=== PATIENT | male | born 1995 | race African-American/Black ===

== ENCOUNTER 2017-01-23 22:44 | Emergency (ER) | payer OTHER ==
[~2017-01-23] VITALS: Ht 175.3 cm; Wt 86.9 kg
[~2017-01-23 22:44] MED LIST: NAPROSYN500 MG PO; PEPCID20 MG PO; VENTOLIN HFA18 GM IH
[2017-01-23 23:39] LABS: EOSINOPHIL (%) 3.4 % (0-5); EOSINOPHIL COUNT 0.3 K/uL (0-0.3); HEMATOCRIT 42.3 % (38.0-50.0); IMMATURE GRANULOCYTE (%) 0.3 % (0.0-0.7); INSTRUMENT ABS NEUTROPHIL CT 4.5 K/uL; LYMPHOCYTE COUNT 2.1 K/uL (1.0-2.8); MCHC 33.3 G/DL (30.0-36.0); MCV 95.9 FL (86-99); MEAN PLAT.VOLUME 10.1 uM^3 (9.0-12.4); MONOCYTE (%) 11.9 % (3-12); MONOCYTE COUNT 0.9 K/uL (0-0.8); NEUTROPHIL (%) 57.2 % (45-76); NEUTROPHIL COUNT 4.5 K/uL (1.8-6.4); PLATELET COUNT 280 K/uL (156-360); RBC DIS.WIDTH-CV 11.7 % (11.8-14.6); RBC DIS.WIDTH-SD 41.1 % (39-53); RED BLOOD COUNT 4.41 M/uL (4.00-5.50); WHITE BLOOD COUNT 7.8 K/uL (4.1-10.2)
[2017-01-23 23:50] LABS: CHLORIDE 106 mEq/L (99-109); POTASSIUM 3.6 mEq/L (3.7-5.4); SODIUM 141 mEq/L (136-147)
[2017-01-23 23:52] LABS: GLUCOSE 104 mg/dL (70-99)
[2017-01-23 23:53] LABS: ANION GAP 10 MEQ/L (2-14)
[2017-01-23 23:56] LABS: GFR ESTIMATE (CALCULATED) > 59 mL/min/
[2017-01-23 23:57] LABS: UREA NITROGEN (BUN) 19 mg/dL (9-23)
[2017-01-23 23:58] LABS: D-DIMER ELISA < 0.15 mg/L FEU (< 0.57)
[2017-01-23 23:59] LABS: TROP-I INTERPRETATION NEGATIVE; TROPONIN-I < 0.01 ng/mL (0.0-0.30)
[2017-01-24 02:04] LABS: TROP-I INTERPRETATION NEGATIVE; TROPONIN-I < 0.01 ng/mL (0.0-0.30)
[2017-01-24 03:08] LABS: INFLUENZA A VIRAL ANTIGEN NEGATIVE; INFLUENZA B VIRAL ANTIGEN NEGATIVE
[2017-01-24] MEDS ORDERED: TYLENOL WITH C1 EACH PO (03:17)
[2017-01-24] MEDS ORDERED: PROAIR RESPICL90 MCG IH (03:47)
[2017-01-24 04:00] VITALS: BP 124/63
== END 2017-01-24 04:11 | disposition home or self-care (01) ==
LOC: EME 22:44
PROVIDERS: Emergency Medicine
DX: R07.9 Chest pain, unspecified (principal); J45.909 Unspecified asthma, uncomplicated; F17.200 Nicotine dependence, unspecified, uncomplicated
CPT/HCPCS: 71020; 80048; 83880; 84484; 85025; 85379; 87502; 87651 90; 93005; 94640; 99281; 99284

== ENCOUNTER 2017-10-23 00:45 | Emergency (ER) | payer OTHER ==
[~2017-10-23 00:45] MED LIST changes: +PROAIR RESPICL90 MCG IH; +TYLENOL WITH C1 EACH PO
[2017-10-23 01:01] LABS: EOSINOPHIL COUNT 0.1 K/uL (0-0.3); HEMATOCRIT 38.8 % (38.0-50.0); IMMATURE GRANULOCYTE (%) 1.3 % (0.0-0.7); IMMATURE GRANULOCYTE COUNT 0.1 K/uL; INSTRUMENT ABS NEUTROPHIL CT 6.8 K/uL; MCH 32.4 PG (29.0-34.0); MCHC 33.5 G/DL (30.0-36.0); MCV 96.8 FL (86-99); MEAN PLAT.VOLUME 10.5 uM^3 (9.0-12.4); MONOCYTE (%) 8.7 % (3-12); MONOCYTE COUNT 0.9 K/uL (0-0.8); NEUTROPHIL (%) 68.5 % (45-76); NEUTROPHIL COUNT 6.8 K/uL (1.8-6.4); PLATELET COUNT 240 K/uL (156-360); RBC DIS.WIDTH-CV 12.1 % (11.8-14.6); RBC DIS.WIDTH-SD 42.7 % (39-53); RED BLOOD COUNT 4.01 M/uL (4.00-5.50); WHITE BLOOD COUNT 9.9 K/uL (4.1-10.2)
[2017-10-23 01:06] LABS: INTER. NORMALIZED RATIO 1.1; PROTHROMBIN TIME 12.8 SEC (10.2-12.9)
[2017-10-23 01:09] LABS: PTT 23.2 SEC (25-37)
[2017-10-23 01:10] LABS: AMYLASE 74 IU/L (1-118); CHLORIDE 107 mEq/L (99-109); POTASSIUM 3.8 mEq/L (3.7-5.4); SODIUM 141 mEq/L (136-147)
[2017-10-23 01:11] LABS: GLUCOSE 136 mg/dL (70-99)
[2017-10-23 01:13] LABS: ANION GAP 9 MEQ/L (2-14)
[2017-10-23 01:14] LABS: SERUM ETHYL ALCOHOL < 10 mg/dL
[2017-10-23 01:15] LABS: GFR ESTIMATE (CALCULATED) > 59 mL/min/ (58.99-99999)
[2017-10-23 01:16] LABS: UREA NITROGEN (BUN) 13 mg/dL (9-23)
[2017-10-23 01:18] LABS: LIPASE 14 U/L (1.0-51.0)
== END 2017-10-23 04:03 | disposition short-term general hospital (02) ==
LOC: EME 00:45 → TRA 00:45
PROVIDERS: Emergency Medicine
PROC: 3E0234Z Introduction of Serum, Toxoid and Vaccine into Muscle, Percutaneous Approach (ICD-10-PCS; principal; 2017-10-23)
DX: S72.491B Other fracture of lower end of right femur, initial encounter for open fracture type I or II (principal); W34.00XA Accidental discharge from unspecified firearms or gun, initial encounter; M21.371 Foot drop, right foot; Z23 Encounter for immunization; Z72.0 Tobacco use
CPT/HCPCS: 73560; 73706; 80048; 81003; 82150; 83690; 85025; 85610; 85730; 86850; 86900; 86901; 99281; 99285; G0480; J0690; J2270; J2405